=== PATIENT | female | born 1975 | race Caucasian/White ===

== ENCOUNTER 2018-04-19 15:04 | Day surgery (SDC) | payer BC ==
[~2018-04-19 15:04] MED LIST: CEFAZOLIN 1 GM INJ
[2018-04-19] MEDS ORDERED: SOD CHLORIDE 0.9% 1,000 ML IV (17:00)
[2018-04-19 17:33] LABS: ANION GAP 15 (8-16); BLOOD UREA NITROGEN 10 mg/dl (7-20); CALCIUM 8.6 mg/dl (8.4-10.2); CARBON DIOXIDE 23 mmol/L (21-31); CHLORIDE 109 mmol/L (97-110); CREATININE 0.64 mg/dl (0.44-1.00); GLUCOSE 114 mg/dl (70-220); SODIUM 142 mmol/L (135-144)
[2018-04-19 17:40] LABS: POTASSIUM 4.9 mmol/L (3.5-5.1)
[2018-04-19] MEDS ORDERED: morphine 2 MG INJ IV (18:00)
[2018-04-19] MEDS ORDERED: PROPOFOL 20 ML ×2 (18:06→19:46)
[2018-04-19] MEDS ORDERED: LIDOCAINE 2% (SDV) 5 ML INJ (18:06)
[2018-04-19] MEDS ORDERED: MIDAZOLAM 1 MG/ML 2 ML INJ (18:07)
[2018-04-19] MEDS ORDERED: ONDANSETRON 4 MG INJ (18:14)
[2018-04-19] MEDS ORDERED: FAMOTIDINE 20 MG INJ (18:14)
[2018-04-19] MEDS ORDERED: METOCLOPRAMIDE 10 MG INJ (18:14)
[2018-04-19] MEDS ORDERED: FENTAnyl 50 MCG/ML VIAL ×2 (18:45→20:26)
[2018-04-19] MEDS: ROPIVACAINE 0.5 % 30 ML VIAL (18:53)
[2018-04-19] MEDS: morphine SULFATE/PF (10 MG/10 ML) INJ (18:54)
[2018-04-19] MEDS: LIDOCAINE 1% (MPF) 30 ML INJ (18:54)
[2018-04-19] MEDS ORDERED: CA CHLORIDE 10% 10 ML SYRINGE ×2 (18:59→19:00)
[2018-04-19] MEDS: THROMBIN 5000 UNIT VIAL (19:40)
[2018-04-19] MEDS ORDERED: HYDROmorphONE 2 MG/ML SYG (19:47)
[2018-04-19 19:49] LABS: INR 0.94; PROTIME 12.7 Sec (11.9-14.9)
[2018-04-19 19:50] LABS: PARTIAL THROMBOPLASTIN TIME 25.8 Sec (25.0-35.0)
[2018-04-19] MEDS ORDERED: MEPERIDINE 25 MG INJ (20:28)
[2018-04-19] MEDS ORDERED: MEPERIDINE 25 MG INJ IV (20:30)
[2018-04-19] MEDS ORDERED: FENTAnyl 50 MCG/ML VIAL IV (20:30)
[2018-04-19] MEDS ORDERED: hydrALAzine 20 MG INJ IV (20:30)
[2018-04-19] MEDS ORDERED: DIPHENHYDRAMINE 50 MG INJ IV (20:30)
[2018-04-19] MEDS ORDERED: LABETALOL HCL 20MG INJ IV (20:30)
[2018-04-19] MEDS ORDERED: HYDROmorphONE 1 MG/5 ML IV SYRINGE IV ×4 (20:30→21:32)
[2018-04-19] MEDS ORDERED: PROCHLORPERAZINE 10 MG INJ IV (20:30)
[2018-04-19] MEDS: ONDANSETRON 4 MG INJ IV (22:03)
== END 2018-04-19 23:00 | disposition home or self-care (01) ==
LOC: SDS 15:04
DX: S83.251A Bucket-handle tear of lateral meniscus, current injury, right knee, initial encounter (principal); S83.241A Other tear of medial meniscus, current injury, right knee, initial encounter; M94.261 Chondromalacia, right knee; X58.XXXA Exposure to other specified factors, initial encounter
CPT/HCPCS: 29881; 80048; 82306; 82962; 85610; 85730